=== PATIENT | female | born 1990 ===

== ENCOUNTER 2020-12-03 14:03 | Emergency (ER) | payer SELFPAY ==
[2020-12-03 15:04] VITALS: BP 136/60
--- NOTE | 2020-12-03 17:06 | Emergency Department Report ---
- General Chief complaint: Animal Bite Stated complaint: CAT BITE Time Seen by Provider: 12/03/20 16:56 Source: patient Mode of arrival: Ambulatory Limitations: No Limitations - History of Present Illness Initial comments: Patient is a 30-year-old female presents emergency room complaints of multiple cat bites and scratches to the left arm that occurred 2 days ago. Patient state s that it was her friend's cat. She states that the cat is fully vaccinated and up-to-date on its vaccines. She states that the cat had just had kittens and she was trying to protect her kittens. She has associated scratches and bites present to the left arm. She states that she noticed a small amount of swelling and it began to have redness and small amount of drainage. She denies any fever, numbness, weakness, vomiting, chills. No past medical history. No allergies medications. - Related Data Previous Rx's Medication Instructions Recorded Last Taken Type Amoxicillin/Potassium Clav 1 each PO BID 10 Days #20 tablet 12/03/20 Unknown Rx [Augmentin 875-125 Tablet] Neomycin/Bacitracin/Polymyxinb 1 applicatio TP BID #14 oint...g. 12/03/20 Unknown Rx [Triple Antibiotic Ointment] Abscess Boil HPI - HPI Chief Complaint: Animal Bite Stated Complaint: CAT BITE Time Seen by Provider: 12/03/20 16:56 Home Medications: Previous Rx's Medication Instructions Recorded Last Taken Type Amoxicillin/Potassium Clav 1 each PO BID 10 Days #20 tablet 12/03/20 Unknown Rx [Augmentin 875-125 Tablet] Neomycin/Bacitracin/Polymyxinb 1 applicatio TP BID #14 oint...g. 12/03/20 Unkno wn Rx [Triple Antibiotic Ointment] ED Review of Systems ROS: Stated complaint: CAT BITE Other details as noted in HPI Comment: All other systems reviewed and negative ED Past Medical Hx - Past Medical History Previous Medical History?: No - Surgical History Past Surgical History?: No - Medications Home Medications: Home Medications Medication Instructions Recorded Confirmed Last Taken Type Amoxicillin/Potassium Clav 1 each PO BID 10 Days #20 tablet 12/03/20 Unknown Rx [Augmentin 875-125 Tablet] Neomycin/Bacitracin/Polymyxinb 1 applicatio TP BID #14 oint...g. 12/03/20 Unknown Rx [Triple Antibiotic Ointment] ED Physical Exam - General Limitations: No Limitations General appearance: alert, in no apparent distress - Head Head exam: Present: atraumatic, normocephalic - Eye Eye exam: Present: normal appearance - ENT ENT exam: Present: mucous membranes moist - Respiratory Respiratory exam: Absent: respiratory distress, accessory muscle use - Neurological Exam Neurological exam: Present: alert, oriented X3 - Psychiatric Psychiatric exam: Present: normal affect, normal mood - Skin Skin exam: Present: warm, dry, other (multiple scratches/abrasions and a couple small puncture wounds present to the LUE, there is a 4 cm area of induration with erythema and increased warmth, no fluctuance, no drainage, FROM of the LUE, no bony ttp, punctures appear superficial, neurovascularly intact) ED Course Vital Signs 12/03/20 15:03 Temperature 98.1 F Pulse Rate 52 L Respiratory 18 Rate Blood Pressure 136/60 O2 Sat by Pulse 96 Oximetry ED Medical Decision Making - Medical Decision Making Patient is a 30-year-old female presents emergency room complaints of multiple cat bites and scratches to the left arm that occurred 2 days ago. Patient states that it was her friend's cat. She states that the cat is fully vaccinated and up-to-date on its vaccines. She states that the cat had just had kittens and she was trying to protect her kittens. She has associated scratches and bites present to the left arm. She states that she noticed a small amount of swelling and it began to have redness and small amount of drainage. She denies any fever, numbness, weakness, vomiting, chills. No past medical history. No allergies medications. Vitals are stable. On exam:multiple scratches/abrasions and a couple small puncture wounds present to the LUE, there is a 4 cm area of induration with erythema and increased warmth, no fluctuance, no drainage, FROM of the LUE, no bony ttp, punctures appear superficial, neurovascularly intact. Appears to have a early cellulitis, no signs of abscess at this time. Patient given prescription for Augmentin and triple antibiotic ointment. Advised patient Please use medication as prescribed. Please keep area clean and dry. Wash with antibacterial soap and water and pat dry. No hot tub, no pool, no soaking in water. Showering is fine. Follow-up with a primary care doctor for reexamination. Return to emergency room for new or worsening symptoms. Critical care attestation.: If time is entered above; I have spent that time in minutes in the direct care of this critically ill patient, excluding procedure time. ED Disposition Clinical Impression: Cat bite Qualifiers: Encounter type: initial encounter Qualified Code(s): W55.01XA - Bitten by cat, initial encounter Cat scratch of forearm Qualifiers: Encounter type: initial encounter Laterality: left Qualified Code(s): S50.812A - Abrasion of left forearm, initial encounter Cellulitis Qualifiers: Site of cellulitis: extremity Site of cellulitis of extremity: upper extremity Laterality: left Qualified Code(s): L03.114 - Cellulitis of left upper limb Disposition: - TO HOME OR SELFCARE Is pt being admited?: No Does the pt Need Aspirin: No Condition: Stable Instructions: Animal Bite, Adult, [id number], Cellulitis, Adult Additional Instructions: Please use medication as prescribed. Please keep area clean and dry. Wash with antibacterial soap and water and pat dry. No hot tub, no pool, no soaking in water. Showering is fine. Follow-up with a primary care doctor for reexamination. Return to emergency room for new or worsening symptoms. Prescriptions: Amoxicillin/Potassium Clav [Augmentin 875-125 Tablet] 1 each PO BID 10 Days #20 tablet Neomycin/Bacitracin/Polymyxinb [Triple Antibiotic Ointment] 1 applicatio TP BID #14 oint...g. Referrals: YESSI CARLSON MD [Staff Physician] - 2-3 Days [facility] [Provider Group] - 2-3 Days [facility], [LAB/CONTRACT] - 2-3 Days [facility] [Outside] - 2-3 Days Time of Disposition: 17:03 Print Language: MAORI
== END 2020-12-03 17:25 | disposition home or self-care (01) ==
LOC: ED 14:03
DX: S50.812A Abrasion of left forearm, initial encounter (principal); L03.114 Cellulitis of left upper limb; Z79.899 Other long term (current) drug therapy; W55.01XA Bitten by cat, initial encounter; Y93.89 Activity, other specified; Y92.89 Other specified places as the place of occurrence of the external cause; Y99.8 Other external cause status
CPT/HCPCS: 99281